=== PATIENT | male | born 1970 | race African-American/Black ===

== ENCOUNTER 2019-05-01 20:47 | Inpatient (IN) ==
[2019-05-01 22:12] LABS: Hematocrit 32.9 % (37.5-50.1); Hemoglobin 10.7 g/dL (12.9-16.9); Mean Corpuscular HGB Conc 32.5 g/dL (31.6-35.5); Mean Corpuscular Hemoglobin 28.8 pg (28.0-33.3); Mean Corpuscular Volume 88.4 fL (83.0-100.0); Mean Platelet Volume 8.8 fL (9.4-12.4); Platelet Count 183 K/mcL (140-400); Red Blood Count 3.72 M/mcL (4.19-5.50); Red Cell Distribution Width 15.6 % (11.5-14.5)
[2019-05-01 22:12] LABS: Bilirubin,Urine Negative (Negative); Blood,Urine Negative (Negative); Clarity,Urine Clear (Clear); Color,Urine Yellow (Yellow); Glucose,Urine (UA) Normal (Normal); Ketones,Urine Negative (Negative); Leukocyte Esterase,Urine Negative (Negative); Nitrite,Urine Negative (Negative); Protein,Urine Negative (Neg-Trace); Specific Gravity,Urine 1.013 (1.010-1.025); Urobilinogen,Urine Normal (Normal)
[2019-05-01 22:13] LABS: White Blood Count 8.7 K/mcL (4.3-11.1)
[2019-05-01 23:10] LABS: Lipase > 1800 Units/L (11-82)
[2019-05-01 23:11] LABS: Alanine Aminotransferase 21 Units/L (7-52); Albumin 4.2 g/dL (3.5-5.7); Albumin/Globulin Ratio 1.4 (1.1-2.2); Alkaline Phosphatase 38 Units/L (34-104); Aspartate Amino Transferase 30 Units/L (13-39); BUN/Creatinine Ratio 12 (6-26); Bilirubin,Direct 0.1 mg/dL (0.0-0.2); Bilirubin,Indirect 0.2 mg/dL (0.0-1.0); Bilirubin,Total 0.3 mg/dL (0.3-1.0); Blood Urea Nitrogen 12 mg/dL (6-20); Calcium 9.4 mg/dL (8.6-10.3); Carbon Dioxide 26 mEq/L (23-29); Chloride 100 mEq/L (98-107); Globulin 2.9 g/dL (2.4-3.5); Glucose 98 mg/dL (70-105); Osmolality,Calculated 282 (280-300); Potassium 2.7 mEq/L (3.5-5.1); Sodium 136 mEq/L (136-145); Total Protein 7.1 g/dL (6.4-8.9); eGFR For African Americans > 60 (> 60); eGFR For Non-African Americans > 60 (> 60)
[2019-05-01] MEDS ORDERED: Morphine Sulfate 2 MG/ML SYRINGE IVP ONE (23:35)
[2019-05-02] MEDS ORDERED: Morphine Sulfate 2 MG/ML SYRINGE IVP ONE (01:00)
[2019-05-02] MEDS ORDERED: Ondansetron ODT 4 MG TAB.RAPDIS SL PRN (01:01)
[2019-05-02] MEDS ORDERED: Naloxone 0.4 MG/ML INJ IVP PRN (01:01)
[2019-05-02] MEDS ORDERED: 0.9 % Sodium Chloride 1,000 ML IVC SCH (01:15)
[2019-05-02] MEDS ORDERED: Isovue-370 500 ML BOTTLE IVP ONE (02:37)
[2019-05-02] MEDS ORDERED: *HR* LORazepam 2 MG/ML VIAL IVP PRN ×3 (02:57)
[2019-05-02 04:52] LABS: Basophils % 0.3 %; Eosinophils % 0.1 %; Hematocrit 34.3 % (37.5-50.1); Hemoglobin 11.4 g/dL (12.9-16.9); Immature Granulocytes % 0.5 % (0-4); Lymphocytes # 1.2 K/mcL (0.6-4.6); Lymphocytes % 14.2 %; Mean Corpuscular HGB Conc 33.2 g/dL (31.6-35.5); Mean Corpuscular Hemoglobin 28.8 pg (28.0-33.3); Mean Corpuscular Volume 86.6 fL (83.0-100.0); Mean Platelet Volume 9.4 fL (9.4-12.4); Monocytes # 0.7 K/mcL (0.0-1.3); Monocytes % 7.5 %; Neutrophils # 6.8 K/mcL (1.6-8.9); Platelet Count 210 K/mcL (140-400); Red Blood Count 3.96 M/mcL (4.19-5.50); Red Cell Distribution Width 15.5 % (11.5-14.5); Segmented Neutrophils % 77.4 %; White Blood Count 8.7 K/mcL (4.3-11.1)
[2019-05-02 05:08] LABS: BUN/Creatinine Ratio 13 (6-26); Blood Urea Nitrogen 9 mg/dL (6-20); Calcium 9.3 mg/dL (8.6-10.3); Carbon Dioxide 25 mEq/L (23-29); Chloride 98 mEq/L (98-107); Glucose 106 mg/dL (70-105); Osmolality,Calculated 279 (280-300); Potassium 3.1 mEq/L (3.5-5.1); Sodium 135 mEq/L (136-145); eGFR For African Americans > 60 (> 60); eGFR For Non-African Americans > 60 (> 60)
[2019-05-02] MEDS: Ringers Solution, Lactated 1,000 ML IVC SCH ×2 (05:14→20:28)
[2019-05-02 05:15] LABS: % Iron Saturation 20 % (20-55); Iron 93 mcg/dL (65-175); Transferrin 329 mg/dL (203-362)
[2019-05-02 05:27] LABS: Ferritin 58 ng/mL (20-250)
[2019-05-02] MEDS ORDERED: *HR* Heparin 5,000 UNIT/ML VIAL SQ SCH (06:00)
[2019-05-02] MEDS: *HR* Heparin 5,000 UNIT/ML VIAL SQ SCH ×3 (06:52→21:00)
[2019-05-02] MEDS: Pantoprazole 40 MG VIAL IVP SCH (06:53)
[2019-05-02] MEDS: Valsartan 160 MG TABLET PO SCH (07:23)
[2019-05-02] MEDS: hydroCHLOROthiazide 25 MG TABLET PO SCH (07:23)
[2019-05-03] MEDS: Ringers Solution, Lactated 1,000 ML IVC SCH ×4 (00:41→12:33)
[2019-05-03] MEDS: Pantoprazole 40 MG VIAL IVP SCH ×3 (04:48→17:08)
[2019-05-03] MEDS: *HR* Heparin 5,000 UNIT/ML VIAL SQ SCH ×3 (04:53→21:02)
[2019-05-03] MEDS: Valsartan 160 MG TABLET PO SCH (08:31)
[2019-05-03] MEDS: hydroCHLOROthiazide 25 MG TABLET PO SCH (08:31)
[2019-05-03 09:24] LABS: Hematocrit 31.8 % (37.5-50.1); Hemoglobin 10.4 g/dL (12.9-16.9); Mean Corpuscular HGB Conc 32.7 g/dL (31.6-35.5); Mean Corpuscular Hemoglobin 29.3 pg (28.0-33.3); Mean Corpuscular Volume 89.6 fL (83.0-100.0); Mean Platelet Volume 9.6 fL (9.4-12.4); Platelet Count 186 K/mcL (140-400); Red Blood Count 3.55 M/mcL (4.19-5.50); Red Cell Distribution Width 15.8 % (11.5-14.5)
[2019-05-03 09:25] LABS: White Blood Count 3.1 K/mcL (4.3-11.1)
[2019-05-03 10:19] LABS: BUN/Creatinine Ratio 7 (6-26); Blood Urea Nitrogen 6 mg/dL (6-20); Calcium 9.2 mg/dL (8.6-10.3); Carbon Dioxide 30 mEq/L (23-29); Chloride 102 mEq/L (98-107); Glucose 90 mg/dL (70-105); Lipase 372 Units/L (11-82); Magnesium 1.4 mg/dL (1.6-2.6); Osmolality,Calculated 283 (280-300); Potassium 2.9 mEq/L (3.5-5.1); Sodium 138 mEq/L (136-145); eGFR For African Americans > 60 (> 60); eGFR For Non-African Americans > 60 (> 60)
[2019-05-03] MEDS ORDERED: Potassium Chloride 40 MEQ, Lidocaine 1% 2 ML in D5% in Water 500 ML IVPB ONE (14:08)
[2019-05-03] MEDS: 0.9 % Sodium Chloride 1,000 ML IVC SCH (21:02)
[2019-05-04] MEDS: Ringers Solution, Lactated 1,000 ML IVC SCH (05:14)
[2019-05-04] MEDS: Pantoprazole 40 MG VIAL IVP SCH (05:51)
[2019-05-04 06:55] LABS: Basophils % 0.8 %; Eosinophils # 0.2 K/mcL (0.0-0.6); Eosinophils % 4.5 %; Hematocrit 32.5 % (37.5-50.1); Hemoglobin 10.5 g/dL (12.9-16.9); Immature Granulocytes % 0.6 % (0-4); Lymphocytes # 1.5 K/mcL (0.6-4.6); Lymphocytes % 42.9 %; Mean Corpuscular HGB Conc 32.3 g/dL (31.6-35.5); Mean Corpuscular Hemoglobin 28.7 pg (28.0-33.3); Mean Corpuscular Volume 88.8 fL (83.0-100.0); Mean Platelet Volume 9.3 fL (9.4-12.4); Monocytes # 0.5 K/mcL (0.0-1.3); Monocytes % 13.7 %; Neutrophils # 1.3 K/mcL (1.6-8.9); Platelet Count 217 K/mcL (140-400); Red Blood Count 3.66 M/mcL (4.19-5.50); Red Cell Distribution Width 15.7 % (11.5-14.5); Segmented Neutrophils % 37.5 %; White Blood Count 3.6 K/mcL (4.3-11.1)
[2019-05-04] MEDS: 0.9 % Sodium Chloride 1,000 ML IVC SCH (06:56)
[2019-05-04] MEDS: *HR* Heparin 5,000 UNIT/ML VIAL SQ SCH ×2 (06:59→15:09)
[2019-05-04 07:26] LABS: BUN/Creatinine Ratio 5 (6-26); Blood Urea Nitrogen 4 mg/dL (6-20); Calcium 9.1 mg/dL (8.6-10.3); Carbon Dioxide 31 mEq/L (23-29); Chloride 101 mEq/L (98-107); Glucose 96 mg/dL (70-105); Magnesium 1.6 mg/dL (1.6-2.6); Osmolality,Calculated 287 (280-300); Sodium 140 mEq/L (136-145); eGFR For African Americans > 60 (> 60); eGFR For Non-African Americans > 60 (> 60)
[2019-05-04] MEDS: Valsartan 160 MG TABLET PO SCH (07:49)
[2019-05-04] MEDS: hydroCHLOROthiazide 25 MG TABLET PO SCH (07:49)
[2019-05-04] MEDS ORDERED: Potassium Chloride 40 MEQ, Lidocaine 1% 2 ML in 0.9 % Sodium Chloride 500 ML IVPB ONE (08:39)
[2019-05-04 16:40] VITALS: BP 166/96
[2019-05-04] MEDS ORDERED: Magnesium Oxide 400 MG TABLET PO SCH (18:00)
[2019-05-04] MEDS ORDERED: Cyanocobalamin (B-12) 1,000 MCG TABLET PO SCH (21:00)
== END 2019-05-04 18:45 | disposition home or self-care (01) | DRG 440 ==
LOC: EMEROOARM 20:47 → 3BNU 20:47 → SUATTDRO 05-02 00:04 → 3BNU 05-02 00:32
PROVIDERS: ADMIT Internal Medicine; ATTEND Internal Medicine